=== PATIENT | female | born 1980 ===

== ENCOUNTER 2025-05-08 08:15 | Inpatient (IN) | payer OTHER ==
[~2025-05-08] VITALS: Ht 165.1 cm; Wt 86.2 kg
[2025-05-08 09:18] VITALS: BP 139/96
[2025-05-08 09:30] LABS: URINE APPEARANCE Clear; URINE BILIRRUBIN Negative (NEGATIVE); URINE BLOOD Negative; URINE COLOR Yellow; URINE GLUCOSE Negative (NEGATIVE); URINE KETONE Negative (NEGATIVE); URINE LEUKOCYTE Negative; URINE NITRATE Negative; URINE PROTEIN Negative (NEGATIVE); URINE UROBILINOGEN 0.2 E.U./dl
[2025-05-08 09:32] LABS: URINE BACTERIA 69.6 uL (0.0-1933); URINE EPITHELIAL CELLS 4.7 uL (0.0-38.8); URINE RBC 13.6 uL (0.0-20.8)
[2025-05-08 09:34] LABS: BASO % 1.1 % (0.1-1.2); EOS # 0.15 (0.04-0.54); EOS % 2.0 % (0.7-7.0); LYMPH # 1.76 (1.18-3.74); LYMPH % 23.4 % (19.3-53.1); MEAN PLATELET VOLUME 11.80 fl (9.4-12.4); MONO # 0.36 (0.24-0.82); MONO % 4.8 % (4.7-12.5); NEUT # 5.16 (1.56-6.13); NEUT % 68.6 % (34.0-71.1); RED CELL DISTRIBUTION WIDTH 14.3 % (11.6-14.4)
[2025-05-08 09:38] LABS: URINE CAST 0.00 uL (0.0-1.40); URINE WBC 0.7 uL (0.0-23.2)
[2025-05-08 10:00] LABS: INR 1.01
[2025-05-08 10:17] LABS: ALT/SGPT 27.0 U/L (12-78); AST/SGOT 9.0 U/L (15-37); BILIRUBIN TOTAL 1.18 mg/dL (0.3-1.2); BUN CREA RATIO 16.0 (7.0-25.0); CREATININE SERUM 0.62 mg/dL (0.55-1.02); GFR 103.63; GLOBULINA 3.0 G/DL (2.4-3.5); GLUCOSE FASTING 94.0 mg/dL (65-100); OSMOLALITY SERUM 280.0 MOSM/KG (275-295)
[2025-05-16] MEDS ORDERED: POVIDONE-IODINE 118 ML BOTT TOP ONE (10:49)
[2025-05-16] MEDS ORDERED: CEFOXITIN SODIUM 2,000 MG VIAL IV ONE (11:20)
[2025-05-16] MEDS ORDERED: SUGAMMADEX SODIUM 200 MG/2 ML VIAL IV ONE (17:16)
[2025-05-16] MEDS ORDERED: KETOROLAC TROMETHAMINE 60 MG VIAL IM STA (18:04)
[2025-05-16] MEDS ORDERED: RINGERS SOLUTION,LACTATED 1,000 ML IV SCH (18:15)
[2025-05-16] MEDS ORDERED: MORPHINE SULFATE 4 MG/ML VIAL IV PRN (18:15)
[2025-05-16] MEDS ORDERED: ONDANSETRON HCL 2 MG/ML VIAL ONE (19:05)
[2025-05-16 19:42] LABS: BASO % 0.2 % (0.1-1.2); EOS # 0.01 (0.04-0.54); EOS % 0.0 % (0.7-7.0); LYMPH # 1.50 (1.18-3.74); LYMPH % 6.6 % (19.3-53.1); MEAN PLATELET VOLUME 11.30 fl (9.4-12.4); MONO # 1.20 (0.24-0.82); MONO % 5.3 % (4.7-12.5); NEUT # 19.95 (1.56-6.13); NEUT % 87.5 % (34.0-71.1); RED CELL DISTRIBUTION WIDTH 14.0 % (11.6-14.4)
[2025-05-16 20:00] VITALS: BP 145/88
[2025-05-16] MEDS ORDERED: ENALAPRILAT DIHYDRATE 1.25 MG/ML VIAL IV ONE (20:37)
[2025-05-16] MEDS ORDERED: ENALAPRILAT DIHYDRATE 2.5 MG/2 ML VIAL IV PRN (20:45)
[2025-05-17 03:00] VITALS: BP 119/83
[2025-05-17 08:00] VITALS: BP 144/85
[2025-05-17] MEDS ORDERED: ACETAMINOPHEN 325 MG TABLET PO PRN (09:00)
[2025-05-17] MEDS ORDERED: OxyCODONE HCL 5 MG TABLET (ROXICODONE) PO PRN (09:00)
[2025-05-17 16:06] VITALS: BP 132/80
[2025-05-18] VITALS: BP 150/80
[2025-05-18 08:00] VITALS: BP 134/79
[2025-05-18 17:29] VITALS: BP 135/80
[2025-05-19 00:11] VITALS: BP 140/80
[2025-05-19 09:08] VITALS: BP 149/96
== END 2025-05-19 12:09 | disposition home or self-care (01) | DRG 743 ==
LOC: OB/GYN 05-16 07:00 → O/R 05-16 10:00 → OB/GYN 05-16 18:37
PROVIDERS: ADMIT Obstetrics & Gynecology; ATTEND Obstetrics & Gynecology
PROC: 0UT70ZZ Resection of Bilateral Fallopian Tubes, Open Approach (ICD-10-PCS; 2025-05-16)
PROC: 0UB00ZZ Excision of Right Ovary, Open Approach (ICD-10-PCS; 2025-05-16)
PROC: 0UT90ZZ Resection of Uterus, Open Approach (ICD-10-PCS; principal; 2025-05-16 07:00)
DX: D25.1 Intramural leiomyoma of uterus (principal); N84.0 Polyp of corpus uteri; N80.03 Adenomyosis of the uterus; N72 Inflammatory disease of cervix uteri; D27.0 Benign neoplasm of right ovary; N93.9 Abnormal uterine and vaginal bleeding, unspecified; Z90.710 Acquired absence of both cervix and uterus